=== PATIENT | male | born 1955 | race Caucasian/White ===

== ENCOUNTER 2023-11-13 06:41 | Emergency (ER) | payer MEDICARE ==
[~2023-11-13] VITALS: Ht 185.4 cm; Wt 122.5 kg
[2023-11-13] MEDS ORDERED: MACROBID 100 M100 MG PO (07:09)
[2023-11-13 13:02] VITALS: BP 142/84; PULSE 74; RESP 18; TEMP 97.8; O2SAT 100
== END 2023-11-13 07:45 | disposition home or self-care (01) ==
LOC: FSED 07:03
DX: R33.9 Retention of urine, unspecified (principal); I10 Essential (primary) hypertension; Z85.828 Personal history of other malignant neoplasm of skin
CPT/HCPCS: 99283